=== PATIENT | female | born 1970 | race Caucasian/White ===

== ENCOUNTER 2019-06-16 12:35 | Emergency (ER) | payer SELFPAY ==
[~2019-06-16] VITALS: Ht 160 cm; Wt 69.4 kg
[~2019-06-16 12:35] MED LIST: ACYC-109 PO; ALBU8.5H2; ART3.5OO OP; ATIVAN; AZIT-21; HYDR-3583 PO; LORA10TA2; NAPR-243 PO; PRD20T PO; PROZAC
--- NOTE | 2019-06-16 13:20 | NUR ---
pt to radiology via wheelchair to obtain images
--- NOTE | 2019-06-16 13:55 | Diagnostic Imaging Report ---
INDICATION: Right elbow pain. TECHNIQUE: AP, oblique, and lateral views of the right elbow were obtained. FINDINGS: No fracture or acute bony abnormality is seen. The joint spaces are unremarkable. IMPRESSION: Negative right elbow. Dictated by: Dictated on workstation # [id number]
--- NOTE | 2019-06-16 13:56 | ED Upper Extremity ---
General Chief Complaint: Upper Extremity Stated Complaint: R ELBOW PAIN Nursing Triage Note: TO TRIAGE WITH COMPLAINTS OF RIGHT ELBOW PAIN X1 MONTH. DENIES INJURY. Nursing Sepsis Screen: No Definite Risk Source: patient (PT IS LIMITED HISTORIAN AND GIVES CONFLICTING INFORMATION), other (MALE S.O. ALSO IS POOR HISTORIAN AND GIVES CONFLICTING INFORMATION) History of Present Illness Date Seen by Provider: Jun 16, 2019 Time Seen by Provider: 13:00 Initial Comments PT ARRIVES VIA POV FROM HOME C/O RIGHT ELBOW PAIN INITIALLY STATES SHE THINKS IT HAS BEEN HURTING "FOR A MONTH" WHEN ASKED IF SHE HAS HAD ANY INJURY--SHE STATES SHE BUMPED IT ON A [place], BUT STATES THAT IT WAS ALREADY HURTING BEFORE SHE BUMPED IT, BUT IT HURT MORE WHEN SHE BUMPED IT. WHEN ASKED HOW LONG AGO SHE BUMPED IT, SHE STATES "MAYBE 6 OR 7 MONTHS AGO" QUESTIONED AGAIN ON HOW LONG IT HAS ACTUALLY BEEN HURTING HER AND SHE STATES A MONTH, AND THEN QUESTIONED AGAIN ABOUT WHEN SHE BUMPED IT AND VERIFIED THAT SHE SAID IT WAS HURTING BEFORE THEN, AND SHE STATES YES. THEN I ASKED HER IF IT HAS BEEN HURTING FOR MORE THAN 6 MONTHS AND SHE STATES YES, AND THEN QUESTIONED HER IF IT HAD BEEN GOING ON FOR MORE THAN A YEAR, AND SHE STATES YES. THEN LATER SHE STATES IT HAS BEEN GOING ON FOR "A MONTH--OR MAYBE OVER A YEAR". NO SWELLING NO PARESTHESIAS OR MOTOR DEFICITS HAS NOT TAKEN ANYTHING FOR PAIN AT ANY TIME SYMPTOMS NO DIFFERENT TODAY IN ANY WAY HAS NOT SOUGHT CARE UNTIL TODAY NO PRIOR INJURY OR PROBLEMS WITH THIS ELBOW OR ARM PT IS RIGHT HANDED NO OTHER JOINTS HURT. PCP: DR. SUERO Allergies and Home Medications Allergies Coded Allergies: Codeine (Unverified Allergy, Mild, 04/08/10) Patient Home Medication List Home Medication List Reviewed: Yes Review of Systems Constitutional: no symptoms reported Respiratory: no symptoms reported Cardiovascular: no symptoms reported Musculoskeletal: see HPI Skin: no symptoms reported Psychiatric/Neurological: No Symptoms Reported Past Btzjvyk-Omqqlz-Yfkycx Hx Patient Social History Recent Foreign Travel: No Contact w/Someone Who Travel: No Recent Infectious Disease Expo: No Recent Hopitalizations: No Past Medical History Surgeries: Yes Section Respiratory: No Cardiac: No Neurological: No Genitourinary: No Gastrointestinal: No Musculoskeletal: No Endocrine: No HEENT: No Cancer: No Psychosocial: No Integumentary: No Physical Exam Vital Signs Vital Signs - First Documented 06/16/19 12:40 Temp 98.0 Pulse 72 Resp 16 B/P (MAP) 135/81 (99) Pulse Ox 99 O2 Delivery Room Air Capillary Refill : Less Than 3 Seconds Height, Weight, BMI Height: 5'3.00" Weight: 153lbs. oz. 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 EXPLAINED TO PT THAT WE WERE WAITING ON XRAY REPORT FROM RADIOLOGIST. Diagnostic Imaging Comments RIGHT ELBOW XRAYS--NO ACUTE PROCESS, PER RADIOLOGIST REPORT AT 1359 Reviewed: Reviewed by Me Departure Impression Primary Impression: Right elbow pain Disposition: HOME, SELF-CARE Condition: Stable Departure-Patient Inst. Referrals: [facility] (PCP/Family) Primary Care Physician Patient Instructions: Elbow Tendinopathy (Tennis and Golf Elbow), How to Use a Shoulder Sling Add. Discharge Instructions: ALTERNATE ICE AND HEAT TO SORE AREA AT 20 MINUTE INTERVALS WEAR SLING AT ALL TIMES FOLLOW UP WITH DR. STOREY AT [address] FOR FURTHER CARE--CALL TODAY FOR APPOINTMENT All discharge instructions reviewed with patient and/or family. Voiced understanding. Scripts Meloxicam (Mobic) 15 Mg Tablet 15 MG PO DAILY, #10 TAB Prov: OLGA HAMILTON DO 06/16/19 OLGA HAMILTON DO Jun 16, 2019 13:55
[2019-06-16] MEDS ORDERED: MELO15TA14 PO (14:01)
[2019-06-16 14:09] VITALS: BP 133/81
== END 2019-06-16 14:09 | disposition home or self-care (01) ==
LOC: EDUNIT# 12:35 → ER 12:36
DX: M25.521 Pain in right elbow (principal); Z88.5 Allergy status to narcotic agent
CPT/HCPCS: 73080

== ENCOUNTER 2022-08-20 17:30 | Emergency (ER) | payer SELFPAY ==
[~2022-08-20] VITALS: Ht 160 cm; Wt 58.9 kg
[~2022-08-20 17:30] MED LIST changes: +MELO15TA14 PO
[2022-08-20] MEDS ORDERED: LIDOCAINE 1% INJ 20 ML VIAL INJ ONE (18:00)
--- NOTE | 2022-08-20 18:10 | ED Lower Extremity ---
General Chief Complaint: Bite-Animal/Human/Insect Stated Complaint: DOG BITE Nursing Triage Note: PT BROUGHT IN BY [facility] FROM FRIENDS HOUSE FOR DOG BITE. PT HAS 8 PUNCTURE WOUNDS TO LEFT CALF. PT GIVEN 50 MCG FENTANYL BY EMS. UNKNOWN LAST TETANUS SHOT. STATES DOGS ARE UP TO DATE ON SHOTS, BUT DID NOT HAVE PAPERS. Source: patient Exam Limitations: no limitations History of Present Illness Date Seen by Provider: Aug 20, 2022 Time Seen by Provider: 17:45 Initial Comments Patient is a 52-year-old female presents with an isolated animal bite to her left lateral calf. The injury occurred 30 minutes prior to ED arrival. Patient was bit by a known pitbull that was family pet of a neighbor. Patient has approximately 8 deep bite wounds to her left calf with soft tissue defects. She does not currently have active bleeding. There is exposed adipose tissue and contused macerated tissue. Patient does not have loss of motor function or pulses to this extremity. She was given fentanyl by EMS prior to ED arrival. The date of last tetanus is believed to be greater than 10 years. The animal is currently under quarantine by the neighbor and shots are believed to be up-to-date. Onset: just prior to arrival Pain/Injury Location: left leg Method of Injury: other Modifying Factors: Improves With Other Allergies and Home Medications Allergies Coded Allergies: codeine (Verified Allergy, Unknown, 08/20/22) Patient Home Medication List Home Medication List Reviewed: Yes Meloxicam (Mobic) 15 Mg Tablet, 15 MG PO DAILY Prescribed by: OLGA HAMILTON on 06/16/19 1401 Review of Systems Constitutional: see HPI EENTM: see HPI Respiratory: see HPI Cardiovascular: see HPI Gastrointestinal: see HPI Genitourinary: see HPI Musculoskeletal: see HPI Skin: see HPI Psychiatric/Neurological: See HPI All Other Systems Reviewed Negative Unless Noted: No Past Yzsbzti-Cubhem-Tetmyv Hx Patient Social History Tobacco Use?: Yes Tobacco type used: Cigarettes Smoking Status: Current Everyday Smoker Use of E-Cig and/or Vaping dev: No Substance use?: No Alcohol Use?: No Pt feels they are or have been: No Past Medical History Surgeries: Yes Section Respiratory: No Cardiac: No Neurological: No Genitourinary: No Gastrointestinal: No Musculoskeletal: No Endocrine: No HEENT: No Cancer: No Psychosocial: No Integumentary: No Physical Exam Vital Signs Vital Signs - First Documented 10/25/22 17:30 Temp 36.5 Pulse 87 Resp 16 B/P (MAP) 121/91 (101) Pulse Ox 100 O2 Delivery Room Air Capillary Refill : Less Than 3 Seconds Height, Weight, BMI Height: 5'3.00" Weight: 153lbs. oz. 69.681287di; 23.00 BMI Method:Stated General Appearance: WD/WN, no apparent distress Cardiovascular: regular rate, rhythm Respiratory: lungs clear Legs: left leg swelling, left leg other (Multiple soft tissue defects with contused tissue to the left lateral calf and distribution of animal bite. No active bleeding. No gross contamination or foreign bodies identified. Pulseless and motor function are intact.) Procedures/Interventions Wound Location: Lower Extremities Other Wound Location Left lateral calf Wound's Depth, Shape: contused tissue, sub Q Wound Explored: contaminated Irrigated w/ Saline (ccs): 1000 Betadine Prep?: No Anesthesia: 1% Lidocaine Volume Anesthetic (ccs): 15 Wound Debrided: minimal Suture: Vicryl Suture Size: 2-0 Number of Sutures: 5 Layer Closure?: 2 Number Deep Layer Sutures: 5 Sterile Dressing Applied?: Yes Progress Patient wound and emphasized and irrigated with copious high-pressure normal saline. There is no gross contamination or foreign bodies identified on physical exam or x-ray. Wounds are closed with 8, 20 deep buried Vicryl sutures with improved approximation of wound edges. Wound was then loosely closed with #21 floyd then bandaged sterilely and the patient was provided crutches. Tetanus is updated and first dose of antibiotics were given while in the emergency department. Typical wound care instructions provided and return precautions reviewed Progress/Results/Core Measures Results/Orders My Orders Orders - MICHELE ROBIN DO Tibia/Fibula, Left, 2 Views (08/20/22 17:50) Lidocaine 1% Inj 20 Ml (Xylocaine 1% Inj (08/20/22 18:00) Dipht,Pertuss(Acell),Tet Adult (Boostrix (08/20/22 18:15) Crutches (08/20/22 18:14) Medications Given in ED Current Medications Medications Dose Ordered Sig/Aaron Route Start Time Stop Time Status Last Admin Dose Admin Diphtheria/ Tetanus/Acell Pertussis 0.5 ml ONCE ONCE IM 08/20/22 18:15 08/20/22 18:16 DC 08/20/22 18:26 0.5 ML Vital Signs/I&O 08/20/22 17:30 Temp 36.5 Pulse 87 Resp 16 B/P (MAP) 121/91 (101) Pulse Ox 100 O2 Delivery Room Air Blood Pressure Mean: 101 Departure Communication (Admissions) Left leg x-ray: No gross fracture or foreign body identified on x-ray. Patient with animal bite to left leg. Wound cleansed, loosely closed and bandaged. Antibiotics given and tetanus updated. Will continue therapeutic and supportive care with watchful waiting and PCP follow-up for reevaluation. Return precautions reviewed. Patient verbalizes understanding agreement discharge instructions prior to departure peer Impression Primary Impression: Laceration of left leg Additional Impression: Dog bite Disposition: HOME, SELF-CARE Condition: Stable Departure-Patient Inst. Decision time for Depature: 19:15 Referrals: [facility] (PCP/Family) Primary Care Physician Patient Instructions: Animal Bites ED Add. Discharge Instructions: You were evaluated in the emergency department for a dog bite to your left leg. X-rays were performed did not show presence of a foreign body or identifiable fracture. Please use crutches, change bandages regularly, and take ibuprofen for pain and hydrocodone as needed for additional relief. Please follow-up with your PCP in 3 days for wound reevaluation or the ED if you have difficulty obtaining follow-up. Floyd will need to be removed in 8 to 10 days. Please fill medications upon leaving the emergency department and complete full course of antibiotics. In the meantime if you develop new or worsening symptoms, return to the emergency department. Please follow-up with animal control for the duration of the animals quarantine as you may require the rabies vaccine series. All discharge instructions reviewed with patient and/or family. Voiced understanding. Scripts Amoxicillin/Potassium Clav (Augmentin Xr 1,000-62.5 Tab) 1,000 Mg-62.5 Mg Tab.er.12h 1 EACH PO BID, #20 TAB Prov: MICHELE ROBIN DO 08/20/22 Hydrocodone/Acetaminophen (Hydrocodone-Acetamin 5-325 mg) 5 Mg-325 Mg Tablet 1 TAB PO Q4H PRN for PAIN-MODERATE (5-7), #12 TAB Prov: MICHELE ROBIN DO 08/20/22 MICHELE ROBIN DO Aug 20, 2022 18:10
[2022-08-20] MEDS ORDERED: TETANUS,DIPTH,PERTUSS P/F (BOOSTRIX) 0.5 ML VIAL IM ONE (18:15)
--- NOTE | 2022-08-20 18:21 | Diagnostic Imaging Report ---
Indication: Dogbite to the left lower extremity. Time of Exam: 6:05:00 PM 2 views left tibia and fibula were obtained. There is a soft tissue injury with soft tissue gas lateral portion of the left lower extremity at the level of the midcalf. No definite radiopaque soft tissue foreign bodies are seen. Tibia and fibula are intact. No fractures are seen. IMPRESSION: Soft tissue injury laterally. No radiopaque soft tissue foreign body or acute bony abnormality is detected. Dictated by: Dictated on workstation # [id number]
[2022-08-20] MEDS ORDERED: ACHD5005 PO (19:16)
[2022-08-20] MEDS ORDERED: AMOX-356 PO (19:16)
[2022-08-20 19:38] VITALS: BP 117/91
== END 2022-08-20 19:38 | disposition home or self-care (01) ==
LOC: EDUNIT# 17:30 → ER 17:36
DX: S81.812A Laceration without foreign body, left lower leg, initial encounter (principal); F17.210 Nicotine dependence, cigarettes, uncomplicated; Z88.6 Allergy status to analgesic agent; Z23 Encounter for immunization; W54.0XXA Bitten by dog, initial encounter
CPT/HCPCS: 73590; 90715

== ENCOUNTER 2022-09-02 13:23 | Emergency (ER) | payer SELFPAY ==
[~2022-09-02] VITALS: Ht 160 cm; Wt 65.7 kg
[~2022-09-02 13:23] MED LIST changes: +ACHD5005 PO; +AMOX-356 PO
--- NOTE | 2022-09-02 14:01 | ED Suture Removal/Wound Check ---
Suture/Wound Re-check Suture Removal/Wound Recheck : Suture Removal/Wound Recheck: Floyd removed by RN Progress Patient has been unable to take the prescribed Augmentin as she states it was too expensive. She has not followed up with anyone else prior to being evaluated in this ER. The michael-wound tissue does appear cellulitic at this time. (YFN CURRY APRN) General Appearance: WD/WN, no apparent distress Comments Erythema and warmth noted surrounding the lacerations; floyd are intact and there is some overlying scabbing; no fluctuance, induration, or active drainage noted (YFN CURRY APRN) Physical Exam Vital Signs Vital Signs - First Documented 09/02/22 13:40 Temp 36.4 Pulse 103 B/P (MAP) 107/77 Pulse Ox 99 O2 Delivery Room Air (LUIS YORK MD) Vital Signs Capillary Refill : (YFN CURRY APRN) General Appearance: WD/WN, no apparent distress (YFN CURRY APRN) Departure Impression Primary Impression: Infected dog bite of lower leg Qualified Codes: S81.852D - Open bite, left lower leg, subsequent encounter; L08.9 - Local infection of the skin and subcutaneous tissue, unspecified; W54.0XXD - Bitten by dog, subsequent encounter Disposition: 01 HOME, SELF-CARE Condition: Stable Departure-Patient Inst. Decision time for Depature: 13:55 (YFN CURRY APRN) Referrals: [facility] (PCP/Family) Primary Care Physician Patient Instructions: Wound Infection Scripts Amoxicillin/Potassium Clav (Amox Tr-K Clv 875-125 mg Tab) 875 Mg-125 Mg Tablet 1 EACH PO BID for 7 Days, #14 TAB Prov: YFN CURRY APRN 09/02/22 ATTENDING PHYSICIAN NOTE: I was physically present as attending physician in the emergency department during the care of this patient, but I was not directly involved in the decision making or delivery of care for this patient. (LUIS YORK MD) YFN CURRY APRN Sep 02, 2022 14:01 LUIS YORK MD Sep 02, 2022 18:57
[2022-09-02] MEDS ORDERED: AMOX1TAB12 PO (14:07)
[2022-09-02 14:13] VITALS: BP 107/77
== END 2022-09-02 14:14 | disposition home or self-care (01) ==
LOC: EDUNIT# 13:23 → ER 13:24
DX: S81.859D Open bite, unspecified lower leg, subsequent encounter (principal); L08.9 Local infection of the skin and subcutaneous tissue, unspecified; Z28.310 Unvaccinated for COVID-19; W54.0XXD Bitten by dog, subsequent encounter